=== PATIENT | male | born 1965 | race Caucasian/White ===

== ENCOUNTER 2018-02-19 09:52 | Inpatient (IN) ==
--- NOTE | 2018-02-19 09:04 | Discharge Summary ---
<Estela Judge - Last Filed: 02/19/18 14:50> Orders not resulted at time of discharge: Pending orders 02/19/18 00:01 XR shoulder complete RT [XR] Routine H/H [Hemoglobin and Hematocrit] [HEME] Routine Date of Encounter: 02/19/18 - Discharge Diagnosis (1) Rotator cuff tear arthropathy of right shoulder Priority: Primary Status: Chronic (2) Status post reverse total arthroplasty of right shoulder Priority: Primary Status: Acute (3) HTN (hypertension) Priority: Secondary Status: Chronic Qualifiers: Hypertension type: essential hypertension Qualified Code(s): I10 - Essential (primary) hypertension - Hospital Course Hospital course: Mr. Miranda is a 52 year old male - Time Spent with Patient Total time spent providing and/or coordinating discharge services: - Discharge Medications Home Medications: Allopurinol [Zyloprim] 300 mg PO DAILY 02/19/18 [History] Amitriptyline [Elavil] 50 mg PO HS 02/19/18 [History] Aspirin [Lo-Dose Aspirin EC] 81 mg PO DAILY 02/19/18 [History] DULoxetine [Cymbalta] 30 mg PO DAILY 02/19/18 [History] HYDROcodone/Acet 10/325 mg [[place] 10-325 mg] 1 tab PO Q6HR PRN 02/19/18 [History ] HYDROcodone/Acet 5/325 mg [[place] 5-325 mg] 2 tab PO DAILY PRN 7 Days #14 tab [Rx] Lidocaine Patch [Lidoderm 5% patch] 1 each TP DAILY 02/19/18 [History] Lisinopril/Hydrochlorothiazide [Zestoretic 20-25 mg Tablet] 1 tab PO DAILY 02/19 [History] Naproxen [Naprosyn] 500 mg PO BID 02/19/18 [History] Omeprazole [PriLOSEC] 20 mg PO DAILY 02/19/18 [History] Allergies/Adverse Reactions: 3 Allergy/AdvReac Type Severity Reaction Status Date / Time No Known Allergies Allergy Verified 02/09/18 14:48 Primary care physician: Tomeka Camargo - Patient Status Disposition: Home, Self-Care Condition: Good - Discharge Instructions Follow Up With: Rosalind Rocha, MAT SEWER [Advanced Practice Nurse] - <Luis Enamorado - Last Filed: 02/20/18 06:24> Orders not resulted at time of discharge: Pending orders 02/19/18 US anesthesia pain block [US] Stat 02/19/18 00:01 XR shoulder complete RT [XR] Routine H/H [Hemoglobin and Hematocrit] [HEME] Routine Date of Encounter: 02/20/18 Time of Encounter: 06:24 - Discharge Diagnosis (1) Rotator cuff tear arthropathy of right shoulder Priority: Primary Status: Chronic (2) Status post reverse total arthroplasty of right shoulder Priority: Primary Status: Acute (3) HTN (hypertension) Priority: Secondary Status: Chronic Qualifiers: Hypertension type: essential hypertension Qualified Code(s): I10 - Essential (primary) hypertension - Hospital Course Hospital course: Mr. Miranda is a 52 year old male Status post total shoulder replacement Discharge todayThe patient had an uneventful postoperative course. They received antibiotics and physical therapy and were discharged in stable condition. There will follow-up in the office in 2 weeks. - Time Spent with Patient Total time spent providing and/or coordinating discharge services: Primary care physician: Tato Rocha - Patient Status Functional capacity at discharge: independent ambulation Overall status at discharge: patient is progressing back to baseline
--- NOTE | 2018-02-19 10:24 | History & Physical Report ---
Date of Encounter: 02/19/18 Time of Encounter: 10:24 24 Hour HP Update - Instructions Instructions: If the History and Physical is less than 30 days old and was completed prior to A.M. admission and or procedure and has NOT been updated on calendar day of procedure please complete this update prior to performing procedure. - Update Patient reports changes in Medical Condition: No Changes in examination, assessment, or condition: No Changes in Medication: No Preop tests/diagnostics Reviewed: Yes Surgery Remains Indicated: Yes Consent for Planned Operative Procedure(s) Verified: Yes - Pre-Operative Checklist Preoperative Checklist Indicated: No Prophylactic Antibiotic Ordered: Yes Is VTE Prophylaxis Indicated?: Yes
[2018-02-19] MEDS ORDERED: Albuterol 2.5 MG/3 ML NEBULIZER ONE (10:27)
[2018-02-19] MEDS ORDERED: Albuterol 2.5 MG/3 ML NEBULIZER IH ONE (10:32)
[2018-02-19] MEDS ORDERED: CeFAZolin Syr 2,000MG/20 ML 2,000 MG/20 ML SYRINGE IVPB ONE (10:32)
[2018-02-19] MEDS: Ringers Solution, Lactated 1,000 ML IVC SCH ×2 (10:34→14:46)
--- NOTE | 2018-02-19 10:35 | Anesthesia Evaluation PreOp ---
Date of Encounter: 02/19/18 Time of Encounter: 10:43 - Past History Planned Operation: Right reverse total shoulder Cardiac History: HTN Pulmonary History: Smoker PROCESS ENGINEERING TECHNICIAN History: Other (chain saw accident to LUE - nerve damage involving LUE) Other Medical History: GERD, Other (Rheumatoid arthritis) Anesthesia History: No Prior Anesthetic Complications Alcohol Use: occasionally Drug use: none Medications and Allergies Allopurinol [Zyloprim] 300 mg PO DAILY 02/19/18 [History] Amitriptyline [Elavil] 50 mg PO HS 02/19/18 [History] Aspirin [Lo-Dose Aspirin EC] 81 mg PO DAILY 02/19/18 [History] DULoxetine [Cymbalta] 30 mg PO DAILY 02/19/18 [History] HYDROcodone/Acet 10/325 mg [[place] 10-325 mg] 1 tab PO Q6HR PRN 02/19/18 [History ] Lidocaine Patch [Lidoderm 5% patch] 1 each TP DAILY 02/19/18 [History] Lisinopril/Hydrochlorothiazide [Zestoretic 20-25 mg Tablet] 1 tab PO DAILY 02/19 [History] Naproxen [Naprosyn] 500 mg PO BID 02/19/18 [History] Omeprazole [PriLOSEC] 20 mg PO DAILY 02/19/18 [History] OxyCODONE Immed Rel [Roxicodone 5 MG] 5 mg PO Q6HR PRN 7 Days #28 tab 02/19/18 [ Rx] 3 Allergy/AdvReac Type Severity Reaction Status Date / Time No Known Allergies Allergy Verified 02/09/18 14:48 - Meds/Allergy Pre-op Review Medications Reviewed: Yes Allergies Reviewed: Yes Beta Blockers on Current Med List: No Anesthesia Results - Labs Laboratory Tests 02/09/18 02/09/18 02/09/18 15:50 15:50 15:50 WBC 10.3 Hgb 13.9 Hct 42.5 Plt Count 413 H PT 10.7 INR 1.0 APTT 34.3 Sodium 137 Potassium 4.1 Chloride 102 Carbon Dioxide 27 BUN 11 Creatinine 0.68 L Est GFR ( Amer) > 60 Est GFR (Non-Af Amer) > 60 BUN/Creatinine Ratio 16 - Imaging EKG: report reviewed, image reviewed Anesthesia Exam Weight: 93 kg NPO (# of Hours): > 8 hrs - HEENT Pupil (Motor): Pupils equal, EOMI Mallampati: II Teeth: Missing, Poor dentition Oral Opening: Greater than 3 - PROCESS ENGINEERING TECHNICIAN LOC: Oriented PROCESS ENGINEERING TECHNICIAN Motor: Deficit LUE - Cardiac Rhythm: Regular Murmur: None - Pulmonary Breath Sounds: bilateral Clear Respiratory Effort: Symmetrical Anesthesia Assess/Plan ASA Score: 2 Modified Karen Scale for Level of Consciousness: Cooperative, oriented, and tranquil Anesthetic Plan: General, Regional Monitoring Plan: Standard Monitors Recovery Plan: PACU
[2018-02-19] MEDS ORDERED: *HR* Midazolam HCl 2 MG/2 ML VIAL ONE (12:22)
[2018-02-19] MEDS ORDERED: Lidocaine -MPF 2% 2 ML VIAL ONE (12:22)
[2018-02-19] MEDS ORDERED: *HR* Propofol 200 MG/20 ML VIAL IVP ONE (12:22)
[2018-02-19] MEDS ORDERED: Ondansetron 4 MG/2 ML VIAL ONE (12:22)
[2018-02-19] MEDS ORDERED: *HR* FentaNYL (PF) 100 MCG/2 ML VIAL ONE ×2 (12:22→13:38)
[2018-02-19] MEDS ORDERED: Ketorolac 30 MG/ML VIAL ONE (12:22)
[2018-02-19] MEDS ORDERED: Dexamethasone 4 MG/ML VIAL ONE (12:22)
[2018-02-19] MEDS ORDERED: *HR* Succinylcholine 200 MG/10 ML VIAL IVP ONE (12:22)
[2018-02-19] MEDS ORDERED: ROPIVACAINE HCL/PF 0.5% 30 ML VIAL ONE (12:28)
[2018-02-19] MEDS ORDERED: Albuterol 2.5 MG/3 ML NEBULIZER IH PRN (12:43)
[2018-02-19] MEDS ORDERED: Acetaminophen IV 1,000 MG/100 ML INFUS..BTL IVPB ONE (12:43)
[2018-02-19] MEDS ORDERED: *HR* Promethazine 25 MG/ML VIAL IVP PRN (12:43)
--- NOTE | 2018-02-19 12:49 | Anesthesia Procedures ---
Date of Encounter: 02/19/18 Time of Encounter: 12:35 Procedures: Anesthesia - Nerve Block Procedure Date: 02/19/18 Time: 12:35 Allergies/Adv Reactions: nka Pre-op Diagnosis: Right Rotator Cuff Arthropathy Surgical Procedure: Revers Right Shoulder Arthroplasty Checklist: Correct Patient Identifier, Correct procedure, History checked Correct side: Right Blood Thinner: No Monitor Applied: EKG, BP, Pulse Oximetry Supplemental Oxygen via Nasal Cannula (L/min): 4 Sedation: Versed (mg): 2 Sedation: Fentanyl (mcg): 50 Indication: Post Op Analgesia Pre-op Neuro Deficits: No Block Type: Supraclavicular, Other (Superficial Cervical) Catheter placed: No Sterile Technique: Yes Ultrasound used: Yes Anatomy identified: Yes Visual spread of Local: Yes Neuro Stimulation: No Blood on Needle Aspiration: No Smooth Injection of Local: Yes Pain with Injection of Local: No Prep: Chlorhexadine Needle: 22 x 50 mm Stimuplex ([place] Echogenic) Local: Ropivacaine (0.5%) Volume (cc): 30 Number of Attempts: 1 Complications: None/effective block Vitals: Vss throughout procedure
[2018-02-19] MEDS ORDERED: EPHEDrine 50 MG/ML VIAL ONE (13:50)
--- NOTE | 2018-02-19 13:58 | Orthopedic Operative Note ---
Date of procedure: 02/19/18 Pre-op diagnosis: Right shoulder cuff tear arthropathy Post-op diagnosis: same Procedure: Procedure: Total Shoulder Replacment Reverse, right Estimated blood loss: 100 cc Hardware: Metal and polyethylene replacement: Arthrex large glenoid baseplate, 2 4.5 screws. 1 6.5 screw, 42+4 glenosphere, 10 humeral stem, poly insert 3 and 6 metal Exam Under anesthesia: Full motion no instability Procedural Notes: Irreparable tear supraspinatus subscapularis Operative procedure: The patient was brought to the operating room and placed on the operating room table. After general anesthesia was administered the operative shoulder was examined. Findings were noted. The patient was placed in the modified beachchair position. All pressure points were padded appropriately. And the head was stabilized in the neutral position. The operative extremity was prepped and draped in the sterile surgical fashion. The patient received IV antibiotics prior to skin incision. A standard deltopectoral approach was made to the operative shoulder. Incision was made to the skin and subcutaneous tissue,hemo stasis was obtained with Bovie cautery. Using careful blunt dissection the cephalic vein was identified and mobilized medially. The deltopectoral interval was developed and the clavipectoral fascia was incised. The subscap was irreparable. The humerus was dislocated patient noted to have irreparable tear supraspinatus tendon, and the humeral cut was made along the anatomic neck. Anterior and posterior Bankart retractors were placed to expose the glenoid. The glenoid guide was seated and the centering hole was made. It was reamed with the appropriate reamer. The large baseplate was seated and secured with (2) 4.5 screws and one 6.5 screw. The baseplate was irrigated and dried and the 42+4 Glenosphere was seated and secured with the Rodriguez taper. The Rodriguez taper was tested and found to be secure the humerus was redislocated and prepared with the diaphyseal reamers, followed by a broaching process up to the appropriate size 10 in the patient's anatomic version. The metaphyseal reamer was then utilized. Trial reduction found the shoulder to be relocatable. Trial components were removed The appropriate 10 stem was impacted in place in the patient's anatomic version. Trial reduction found the shoulder to be relocatable and stable with the appropriate 3 Maureen 6 metal Trial component was removed and the real implants was seated and secured the shoulder was reduced. The shoulder had excellent motion and excellent stability and no evidence of dislocation. The deep tissue was irrigated with pulse irrigation. The PA close the shoulder. The deltopectoral interval was closed with a running #1 PDS suture, subcutaneous tissue was irrigated and closed with 0 PDS suture, the skin was closed with Dermabond. The patient was placed in a sterile dressing, abduction brace and extubated. The patient was then transferred to the recovery room in stable condition. Anesthesia: GETA Surgeon: Luis Enamorado Was there an geriatric nurse assistant present: Yes Sewing Machine Operator Semiautomatic: Estela Judge Estimated blood loss (cc): 100 Condition: stable Disposition: PACU
[2018-02-19] MEDS ORDERED: *HR* EPINEPHrine 1 MG/10 ML SYRINGE ONE (13:59)
[2018-02-19] MEDS: MORPHINE SUL Oral CONC 10 MG/0.5 ML ORAL.SYG SL PRN ×2 (14:40→14:50)
[2018-02-19 14:51] LABS: Hematocrit 42.2 % (37.5-50.1); Hemoglobin 13.6 g/dL (12.9-16.9)
[2018-02-19] MEDS ORDERED: Ringers Solution, Lactated 1,000 ML IVC SCH (15:07)
[2018-02-19] MEDS ORDERED: Temazepam 15 MG CAPSULE PO PRN (15:07)
[2018-02-19] MEDS ORDERED: Naloxone 0.4 MG/ML INJ IVP PRN (15:07)
[2018-02-19] MEDS ORDERED: Sennosides 8.6 MG TABLET PO PRN (15:07)
[2018-02-19] MEDS ORDERED: MOM Conc 10 ML UD.LIQ PO PRN (15:07)
[2018-02-19] MEDS ORDERED: *HR* OxyCODONE/APAP 5/325 TABLET PO PRN (15:07)
[2018-02-19] MEDS ORDERED: traMADol 50 MG TABLET PO PRN (15:07)
[2018-02-19] MEDS ORDERED: Ondansetron 4 MG/2 ML VIAL IVP PRN (15:07)
--- NOTE | 2018-02-19 15:11 | Anesthesia Evaluation Post Op ---
Date of Encounter: 02/19/18 Time of Encounter: 15:15 - Vital Signs Vital Signs: Vital Signs/O2 Sat/Glucose, Most Current Temp Pulse Resp BP Pulse Ox 02/19/18 15:00 98.6 F 94 16 97/64 92 02/19/18 14:50 94 16 93/64 93 02/19/18 14:40 99.2 F 93 16 87/64 95 02/19/18 14:30 97 16 91/62 92 02/19/18 14:20 107 16 97/55 92 02/19/18 14:10 98.7 F 118 16 106/78 95 02/19/18 13:01 86 16 120/79 98 02/19/18 12:46 89 121/82 97 02/19/18 12:33 81 16 119/83 97 - Lungs Lungs: Clear Ascult./Percussion - Airway Airway: Non-obstructed - Cardiovascular Regular Rate - Mental Status Mental Status: Alert & Oriented, Answers Appropriately - Pain Pain Scale: 0 - Nausea Vomiting Nausea Vomiting: Not Present - Hydration Hydration: Ice chips - Discharge PostOp Status: Transfer Patient to floor
[2018-02-19] MEDS ORDERED: *HR* Enoxaparin 30 MG/0.3 ML SYRINGE SQ SCH (18:00)
[2018-02-19] MEDS: *HR* OxyCODONE Immed Rel 5 MG TABLET PO PRN ×2 (18:10→22:59)
[2018-02-19] MEDS: *HR* Enoxaparin 30 MG/0.3 ML SYRINGE SQ SCH (18:10)
[2018-02-19] MEDS: CeFAZolin Premix DUPLEX 2,000 MG/50 ML BAG IVPB SCH (20:11)
[2018-02-20] MEDS: CeFAZolin Premix DUPLEX 2,000 MG/50 ML BAG IVPB SCH (02:48)
[2018-02-20] MEDS: *HR* OxyCODONE Immed Rel 5 MG TABLET PO PRN (05:40)
[2018-02-20] MEDS: *HR* Enoxaparin 30 MG/0.3 ML SYRINGE SQ SCH (05:40)
--- NOTE | 2018-02-20 06:25 | Orthopedics Progress Note ---
Date of Encounter: 02/20/18 Time of Encounter: 06:25 - Assessment and Plan (1) Rotator cuff tear arthropathy of right shoulder Current Visit: No Status: Chronic (2) Status post reverse total arthroplasty of right shoulder Current Visit: No Status: Acute (3) HTN (hypertension) Current Visit: No Status: Chronic Qualifiers: Hypertension type: essential hypertension Qualified Code(s): I10 - Essential (primary) hypertension Subjective Interval history: Patient was seen this morning doing well without complaints. Afebrile vital signs stable. Operative extremity: Neurovascularly intact Dressing clean dry and intact Calves nontender Assessment and plan: Continue with postoperative care Discharge today Objective Vital signs: Vital Signs Temp Pulse Resp BP Pulse Ox 02/20/18 02:50 98.0 F 80 16 99/67 95 02/19/18 23:08 98.9 F 76 18 100/65 93 02/19/18 19:31 98.4 F 110 18 112/76 95 02/19/18 18:03 114 16 103/68 02/19/18 16:25 98.5 F 95 16 99/65 93 02/19/18 15:53 98.5 F 02/19/18 15:18 98.6 F 99 15 99/67 92 02/19/18 15:00 98.6 F 94 16 97/64 92 02/19/18 14:50 94 16 93/64 93 02/19/18 14:40 99.2 F 93 16 87/64 95 02/19/18 14:30 97 16 91/62 92 02/19/18 14:20 107 16 97/55 92 02/19/18 14:10 98.7 F 118 16 106/78 95 02/19/18 13:01 86 16 120/79 98 02/19/18 12:46 89 121/82 97 02/19/18 12:33 81 16 119/83 97 02/19/18 11:06 98.1 F 83 16 114/79 94 Intake and Output 02/19/18 02/19/18 02/20/18 15:59 23:59 07:59 Intake Total 1000 / 1000 650 / 650 150 / 150 Output Total 100 / 100 0 / 0 Balance 900 / 900 650 / 650 150 / 150 Intake: IV Fluids 1000 / 1000 50 / 50 50 / 50 Lactated Ringers 1,000 ML @ 25 1000 / 1000 mls/hr IVC .Q24H [facility] Rx#: [id number] Ancef Premix DUPLEX 2,000 mg In 50 / 50 50 / 50 50 ml @ 100 mls/hr IVPB Q8H JAIME Rx#:[id number] Oral 0 / 0 600 / 600 100 / 100 Output: Urine 0 / 0 Estimated Blood Loss 100 / 100 Other: # Voids 1 1 Weight 92.986 kg - Labs CBC & BMP: 02/19/18 14:22 - VTE Documentation of Mechanical Device: Intermittent pneumatic compression device Consult Discharge Plan - Plan Referrals: Rosalind Rocha, REHABILITATION MANAGER [Advanced Practice Nurse] -
[2018-02-20 07:17] VITALS: BP 96/63
[2018-02-20 07:41] LABS: Hematocrit 36.3 % (37.5-50.1); Hemoglobin 12.1 g/dL (12.9-16.9)
[2018-02-20] MEDS ORDERED: Aspirin Enteric Coated 81 MG Tablet PO SCH (09:00)
== END 2018-02-20 11:21 | disposition home or self-care (01) | DRG 315 ==
LOC: SAMDAY 09:52 → 3NENU 15:38
PROVIDERS: ADMIT Orthopaedic Surgery; ATTEND Orthopaedic Surgery